=== PATIENT | male | born 1990 | race Caucasian/White ===

== ENCOUNTER 2020-05-08 09:00 | Outpatient (RCR) | payer OTHER, SELFPAY | END 2020-05-08 23:55 | disposition home or self-care (01) | LOC: HO.PAOS 09:00 | PROVIDERS: Visit Provider Counselor Mental Health | DX: F33.1 Major depressive disorder, recurrent, moderate (principal); F40.10 Social phobia, unspecified; F42.9 Obsessive-compulsive disorder, unspecified | CPT/HCPCS: 90686; 90834 ==

== ENCOUNTER 2020-07-04 10:35 | Outpatient (REF) | payer OTHER, SELFPAY ==
[2020-07-04 10:53] LABS: COVID-19 Test Negative (Negative); IDNOW Serial# 55D5AD1C
== END 2020-07-04 10:36 | disposition home or self-care (01) ==
LOC: HO.EMPCOV 10:35
PROVIDERS: Visit Provider Internal Medicine
DX: Z20.822 Contact with and (suspected) exposure to COVID-19 (principal)
CPT/HCPCS: 36415; 87635; C9803